=== PATIENT | female | born 2000 | race Caucasian/White ===

== ENCOUNTER 2023-05-14 09:11 | Emergency (ER) | payer OTHER ==
[~2023-05-14] VITALS: Ht 157.5 cm; Wt 61.4 kg
[~2023-05-14 09:11] MED LIST: PRENTAB9 PO
[2023-05-14 12:06] LABS: BASO % 0.2 % (0.0-1.0); EOS % 0.2 % (0.0-3.0); HEMATOCRIT 39.4 % (36.0-47.0); HEMOGLOBIN 12.8 g/dl (12.0-15.5); LYMPH % 7.7 % (24.0-44.0); MEAN CORPUSCULAR HEMOGLOBIN 28.6 pg (27.0-33.0); MEAN CORPUSCULAR HGB CONC 32.5 g/dl (32.0-36.5); MEAN CORPUSCULAR VOLUME 87.9 fl (80.0-96.0); MONO # 1.4 10^3/uL (0.0-0.8); MONO % 10.9 % (2.0-8.0); NEUTROPHILS # 10.5 10^3/uL (1.5-8.5); NEUTROPHILS % 80.4 % (36.0-66.0); PLATELET COUNT, AUTOMATED 290 10^3/uL (150-450); RED BLOOD COUNT 4.48 10^6/uL (4.00-5.40); WHITE BLOOD COUNT 13.1 10^3/uL (4.0-10.0)
[2023-05-14 12:30] VITALS: BP 116/63; TEMP 99.5; O2SAT 97
[2023-05-14 12:31] LABS: ALBUMIN 3.2 G/DL (3.2-5.2); BILIRUBIN,DIRECT 0.2 MG/DL (<0.4); BILIRUBIN,TOTAL 0.4 MG/DL (0.3-1.2); TOTAL PROTEIN 6.7 G/DL (5.7-8.2)
[2023-05-14] MEDS ORDERED: ISOVUE-370 76% 100ML VIAL As Ordered ONE (12:43)
[2023-05-14] MEDS ORDERED: cefTRIAXone SOD 1 GM in D5W MINI-BAG PLUS 50 ML IV ONE (12:45)
[2023-05-14] MEDS ORDERED: NS 1,000 ML IV ONE (12:45)
[2023-05-14] MEDS ORDERED: KETOROLAC 30 MG/ML 1ML VIAL IV ONE (12:45)
[2023-05-14] MEDS ORDERED: CEFD300C42 PO (13:53)
[2023-05-14] MEDS ORDERED: NAPR-837 PO (13:53)
[2023-05-14] MEDS ORDERED: ONDA4TAB6 PO (13:53)
== END 2023-05-14 14:05 | disposition home or self-care (01) ==
LOC: M ED 12:17
DX: N10 Acute pyelonephritis (principal)
CPT/HCPCS: 74177; 80047; 80076; 81001; 83605; 83690; 84702; 85025; 87086; 96365; 96375; 99284; J0696; J1885; Q9967

== ENCOUNTER 2023-05-28 02:40 | Observation (INO) | payer OTHER ==
[~2023-05-28] VITALS: Ht 157.5 cm; Wt 63.7 kg
[~2023-05-28 02:40] MED LIST changes: +CEFD300C42 PO; +NAPR-837 PO; +ONDA4TAB6 PO
[2023-05-28] MEDS ORDERED: NS 1,000 ML IV ONE (04:10)
[2023-05-28 04:44] LABS: BASO # 0.1 10^3/uL (0.0-0.2); BASO % 0.3 % (0.0-1.0); EOS # 0.1 10^3/uL (0.0-0.5); EOS % 0.8 % (0.0-3.0); HEMATOCRIT 30.1 % (36.0-47.0); LYMPH # 1.7 10^3/uL (1.5-5.0); LYMPH % 11.1 % (24.0-44.0); MEAN CORPUSCULAR HEMOGLOBIN 29.2 pg (27.0-33.0); MEAN CORPUSCULAR HGB CONC 33.2 g/dl (32.0-36.5); MEAN CORPUSCULAR VOLUME 87.8 fl (80.0-96.0); MONO % 14.6 % (2.0-8.0); NEUTROPHILS % 72.6 % (36.0-66.0); PLATELET COUNT, AUTOMATED 294 10^3/uL (150-450); RED BLOOD COUNT 3.43 10^6/uL (4.00-5.40); WHITE BLOOD COUNT 15.1 10^3/uL (4.0-10.0)
[2023-05-28 05:09] LABS: LIPASE 22 U/L (12-53)
[2023-05-28 05:11] LABS: ALKALINE PHOSPHATASE 81 U/L (46-116); ALT/SGPT 11 U/L (7.0-40); AST/SGOT < 8 U/L (<34); BILIRUBIN,DIRECT 0.2 MG/DL (<0.4); BILIRUBIN,TOTAL 0.5 MG/DL (0.3-1.2); BLOOD UREA NITROGEN 8 MG/DL (9-23); CALCIUM LEVEL 8.4 MG/DL (8.5-10.1); CARBON DIOXIDE LEVEL 26 MMOL/L (20-31); CHLORIDE LEVEL 105 MMOL/L (98-107); CREATININE FOR GFR 0.58 MG/DL (0.55-1.30); GLOMERULAR FILTRATION RATE > 60.0 (>60); GLUCOSE, FASTING 91 MG/DL (60-100); POTASSIUM SERUM 3.3 MMOL/L (3.5-5.1); SODIUM LEVEL 139 MMOL/L (136-145); TOTAL PROTEIN 5.9 G/DL (5.7-8.2)
[2023-05-28 05:16] LABS: RSV AMPLIFICATION NEGATIVE (NEGATIVE)
[2023-05-28 05:30] LABS: MONO # 2.2 10^3/uL (0.0-0.8)
[2023-05-28 06:30] LABS: PROCALCITONIN 0.13 ng/ml
[2023-05-28] MEDS ORDERED: NAPR-885 PO (08:50)
[2023-05-28] MEDS: ENOXAPARIN 40MG/0.4ML SYRINGE (J1650 PER 10MG) SC SCH (09:00)
[2023-05-28] MEDS ORDERED: MULTTAB20 PO (09:39)
[2023-05-28] MEDS ORDERED: DOCU100C16 PO (09:39)
[2023-05-28] MEDS ORDERED: MED REC IN PROGRESS XX SCH (09:40)
[2023-05-28] MEDS ORDERED: HOME MED LIST COMPLETE! XX SCH (09:45)
[2023-05-28 09:59] VITALS: BP 130/86; TEMP 98.6; O2SAT 97
[2023-05-28] MEDS ORDERED: ACETAMINOPHEN TAB 650MG DOSE (2X325MG) PO PRN (10:00)
[2023-05-28 10:25] LABS: MAGNESIUM LEVEL 1.9 MG/DL (1.8-2.4)
[2023-05-28] MEDS ORDERED: POTASSIUM CHLORIDE 10% LIQ 20MEQ/15ML UDC PO ONE (11:00)
[2023-05-28] MEDS ORDERED: cefTRIAXone SOD 1 GM in D5W MINI-BAG PLUS 50 ML IV SCH (12:00)
[2023-05-28 20:15] VITALS: BP 121/75; TEMP 99.1; O2SAT 98
[2023-05-29 06:09] VITALS: BP 116/66; TEMP 98.3; O2SAT 99
[2023-05-29 06:11] LABS: BASO # 0.1 10^3/uL (0.0-0.2); BASO % 0.8 % (0.0-1.0); EOS # 0.2 10^3/uL (0.0-0.5); EOS % 1.9 % (0.0-3.0); HEMATOCRIT 32.2 % (36.0-47.0); HEMOGLOBIN 10.4 g/dl (12.0-15.5); LYMPH # 1.7 10^3/uL (1.5-5.0); LYMPH % 17.7 % (24.0-44.0); MEAN CORPUSCULAR HEMOGLOBIN 28.3 pg (27.0-33.0); MEAN CORPUSCULAR HGB CONC 32.3 g/dl (32.0-36.5); MEAN CORPUSCULAR VOLUME 87.5 fl (80.0-96.0); MONO # 1.1 10^3/uL (0.0-0.8); MONO % 11.8 % (2.0-8.0); NEUTROPHILS # 6.3 10^3/uL (1.5-8.5); NEUTROPHILS % 67.2 % (36.0-66.0); PLATELET COUNT, AUTOMATED 301 10^3/uL (150-450); RED BLOOD COUNT 3.68 10^6/uL (4.00-5.40); WHITE BLOOD COUNT 9.3 10^3/uL (4.0-10.0)
[2023-05-29 06:28] LABS: BLOOD UREA NITROGEN 7 MG/DL (9-23); CALCIUM LEVEL 8.7 MG/DL (8.5-10.1); CARBON DIOXIDE LEVEL 27 MMOL/L (20-31); CHLORIDE LEVEL 108 MMOL/L (98-107); CREATININE FOR GFR 0.56 MG/DL (0.55-1.30); GLOMERULAR FILTRATION RATE > 60.0 (>60); GLUCOSE, FASTING 84 MG/DL (60-100); POTASSIUM SERUM 3.8 MMOL/L (3.5-5.1); SODIUM LEVEL 143 MMOL/L (136-145)
[2023-05-29] MEDS ORDERED: CEFDINIR 300 MG CAP (OMNICEF) PO SCH (09:00)
[2023-05-29] MEDS ORDERED: LACTOBACILLUS ACIDOPHILUS CAP (BACID) PO SCH (09:00)
[2023-05-29] MEDS: ENOXAPARIN 40MG/0.4ML SYRINGE (J1650 PER 10MG) SC SCH (09:09)
[2023-05-29] MEDS ORDERED: CEFD300CAP PO (10:16)
[2023-05-29] MEDS ORDERED: RISATAB3 PO (10:16)
== END 2023-05-29 13:15 | disposition home or self-care (01) ==
LOC: M ED 02:40 → M ED INP 08:15 → INTOOBSV 08:15 → ENRESERV 08:50 → M MS5PR 09:50
PROVIDERS: ADMIT Internal Medicine; ATTEND Internal Medicine
DX: O86.21 Infection of kidney following delivery (principal); N12 Tubulo-interstitial nephritis, not specified as acute or chronic; N20.0 Calculus of kidney; O99.285 Endocrine, nutritional and metabolic diseases complicating the puerperium; E87.6 Hypokalemia; Z79.899 Other long term (current) drug therapy
CPT/HCPCS: 36415; 74176; 80048; 80076; 80202; 81001; 83605; 83690; 83735; 84145; 84702; 85025; 86140; 87040; 87086; 87631; 87641; 96361; 96372; 96374; 99285; J0696; J1650